=== PATIENT | male | born 1950 | race Caucasian/White ===

== ENCOUNTER 2022-03-01 18:03 | Inpatient (IN) | payer MEDICARE, MEDICAID ==
[~2022-03-01] VITALS: Ht 167.6 cm; Wt 80.4 kg
[2022-03-01 20:17] LABS: EOSINOPHILS % (AUTO) 2.9 % (1.0-6.0); HEMATOCRIT 35.5 % (41-53); HEMOGLOBIN 11.7 g/dL (13.5-17.5); LYMPHOCYTES # (AUTO) 1.6 K/uL (1.0-4.8); LYMPHOCYTES % (AUTO) 21.5 % (22.0-44.0); MEAN CORPUSCULAR HEMOGLOBIN 28.6 pg (26.0-34.0); MEAN CORPUSCULAR HGB CONC 32.9 G/dL (31.0-37.0); MEAN CORPUSCULAR VOLUME 87 fL (80-100); MONOCYTES # (AUTO) 0.4 K/uL (0.1-1.0); MONOCYTES % (AUTO) 5.7 % (2.0-9.0); NEUTROPHILS # (AUTO) 5.2 K/uL (1.8-7.7); NEUTROPHILS % (AUTO) 68.9 % (40.0-70.0); PLATELET COUNT (AUTO) 182 K/uL (150-450); RED BLOOD CELL COUNT(AUTO) 4.09 MIL/uL (4.50-5.90); RED CELL DISTRIBUTION WIDTH 14.4 % (11.5-14.5)
[2022-03-01 20:28] LABS: ANION GAP 10 mmol/L (8-16); CALCIUM, TOTAL 9.6 mg/dL (8.8-10.5); CARBON DIOXIDE 27 mmol/L (22-29); CHLORIDE 96 mmol/L (98-107); CREATININE 1.17 mg/dL (0.60-1.30); GLUCOSE,RANDOM 89 mg/dL (70-110); SODIUM SERUM 133 mmol/L (136-145); UREA NITROGEN, BLOOD 34 mg/dL (7-18)
[2022-03-01 20:34] LABS: ALANINE AMINOTRANSFERASE 17 U/L (12-78); ALBUMIN 3.4 g/dL (3.4-5.0); ALKALINE PHOSPHATASE 106 U/L (46-116); ASPARTATE AMINOTRANSFERASE 22 U/L (15-37); BILIRUBIN,TOTAL 0.5 mg/dL (0.1-1.0); TOTAL PROTEIN, SERUM 7.8 g/dL (6.4-8.2)
[2022-03-01 20:37] LABS: GLOMERULAR FILTR. RATE CALC > 60 mL/min (>60)
[2022-03-01] MEDS ORDERED: ACETAMINOPHEN 325 MG TABLET PO PRN (22:00)
[2022-03-01] MEDS ORDERED: ONDANSETRON HCL 4 MG/2 ML VIAL IVP PRN (22:00)
[2022-03-01] MEDS ORDERED: IOHEXOL 350 MG/ML 100 ML VIAL ONE (22:08)
[2022-03-01] MEDS ORDERED: SODIUM CHLORIDE 0.9% 100 ML ONE (22:08)
[2022-03-01 22:23] LABS: COVID AG,FIA SOURCE NASAL SWAB
[2022-03-01 22:42] LABS: CHOLESTEROL 180 mg/dL (131-200); HDL CHOLESTEROL 91 mg/dL (40-60); LDL CHOL (CALC.) 81 mg/dL (0-130); THYROID STIMULATING HORMONE 8.48 uIU/mL (0.36-3.74); TRIGLYCERIDES 42 mg/dL (15-150)
[2022-03-02 00:12] VITALS: BP 170/97
[2022-03-02] MEDS: HEPARIN SODIUM,PORCINE 5,000 UNITS/ML VIAL SQ SCH ×3 (00:33→15:54)
[2022-03-02] MEDS: MELATONIN 5 MG TABLET PO PRN (00:33)
[2022-03-02] MEDS ORDERED: ASPIRIN 81 MG CHEWABLE TABLET PO ONE (00:45)
[2022-03-02 03:23] VITALS: BP 129/70
[2022-03-02 04:39] LABS: BASOPHILS % (AUTO) 1.5 % (0.0-2.0); EOSINOPHILS % (AUTO) 4.5 % (1.0-6.0); HEMATOCRIT 32.9 % (41-53); HEMOGLOBIN 11.2 g/dL (13.5-17.5); LYMPHOCYTES # (AUTO) 1.9 K/uL (1.0-4.8); LYMPHOCYTES % (AUTO) 32.7 % (22.0-44.0); MEAN CORPUSCULAR HEMOGLOBIN 29.4 pg (26.0-34.0); MEAN CORPUSCULAR HGB CONC 34.2 G/dL (31.0-37.0); MEAN CORPUSCULAR VOLUME 86 fL (80-100); MONOCYTES # (AUTO) 0.4 K/uL (0.1-1.0); MONOCYTES % (AUTO) 6.5 % (2.0-9.0); NEUTROPHILS # (AUTO) 3.2 K/uL (1.8-7.7); NEUTROPHILS % (AUTO) 54.8 % (40.0-70.0); PLATELET COUNT (AUTO) 172 K/uL (150-450); RED BLOOD CELL COUNT(AUTO) 3.82 MIL/uL (4.50-5.90); RED CELL DISTRIBUTION WIDTH 14.3 % (11.5-14.5)
[2022-03-02 04:49] LABS: ANION GAP 8 mmol/L (8-16); CALCIUM, TOTAL 9.2 mg/dL (8.8-10.5); CARBON DIOXIDE 28 mmol/L (22-29); CHLORIDE 99 mmol/L (98-107); CREATININE 1.06 mg/dL (0.60-1.30); GLOMERULAR FILTR. RATE CALC > 60 mL/min (>60); GLUCOSE,RANDOM 79 mg/dL (70-110); POTASSIUM 3.5 mmol/L (3.5-5.1); SODIUM SERUM 135 mmol/L (136-145); UREA NITROGEN, BLOOD 28 mg/dL (7-18)
[2022-03-02 08:02] VITALS: BP 123/70
[2022-03-02] MEDS: ASPIRIN 81 MG CHEWABLE TABLET PO SCH (08:54)
[2022-03-02] MEDS: ATORVASTATIN CALCIUM 20 MG TABLET PO SCH (08:54)
[2022-03-02 10:59] VITALS: BP 133/80
[2022-03-02 15:41] VITALS: BP 171/106
[2022-03-02] MEDS ORDERED: CloNIDine HCL 0.1 MG TABLET PO PRN (17:30)
[2022-03-02] MEDS: AmLODIPine BESYLATE 5 MG TABLET PO SCH (17:35)
[2022-03-03 00:12] VITALS: BP 137/75
[2022-03-03] MEDS: HEPARIN SODIUM,PORCINE 5,000 UNITS/ML VIAL SQ SCH ×3 (01:33→16:00)
[2022-03-03 07:30] VITALS: BP 121/62
[2022-03-03] MEDS: ASPIRIN 81 MG CHEWABLE TABLET PO SCH ×2 (08:00→11:57)
[2022-03-03] MEDS: ATORVASTATIN CALCIUM 20 MG TABLET PO SCH (09:00)
[2022-03-03] MEDS: AmLODIPine BESYLATE 5 MG TABLET PO SCH (09:00)
[2022-03-03 16:03] VITALS: BP 129/69
[2022-03-04 00:35] VITALS: BP 147/88
[2022-03-04 07:57] VITALS: BP 138/91
[2022-03-04] MEDS: HEPARIN SODIUM,PORCINE 5,000 UNITS/ML VIAL SQ SCH ×4 (08:00→23:37)
[2022-03-04] MEDS: ATORVASTATIN CALCIUM 20 MG TABLET PO SCH (08:37)
[2022-03-04] MEDS: AmLODIPine BESYLATE 5 MG TABLET PO SCH (08:37)
[2022-03-04 11:34] VITALS: BP 118/78
[2022-03-04 15:37] VITALS: BP 107/66
[2022-03-04 19:16] VITALS: BP 141/75
[2022-03-04 23:37] VITALS: BP 160/84
[2022-03-05 05:10] VITALS: BP 151/89
[2022-03-05 07:33] VITALS: BP 166/101
[2022-03-05] MEDS: ASPIRIN 81 MG CHEWABLE TABLET PO SCH (08:00)
[2022-03-05] MEDS: HEPARIN SODIUM,PORCINE 5,000 UNITS/ML VIAL SQ SCH ×3 (08:00→23:24)
[2022-03-05] MEDS: ATORVASTATIN CALCIUM 20 MG TABLET PO SCH (09:00)
[2022-03-05] MEDS: AmLODIPine BESYLATE 5 MG TABLET PO SCH (09:00)
[2022-03-05 10:30] VITALS: BP 158/81
[2022-03-05 12:29] VITALS: BP 151/80
[2022-03-05 15:56] VITALS: BP 143/85
[2022-03-05 20:29] VITALS: BP 143/84
[2022-03-06 04:48] VITALS: BP 147/77
[2022-03-06] MEDS: HEPARIN SODIUM,PORCINE 5,000 UNITS/ML VIAL SQ SCH ×3 (07:41→23:26)
[2022-03-06] MEDS: ASPIRIN 81 MG CHEWABLE TABLET PO SCH (07:47)
[2022-03-06] MEDS: ATORVASTATIN CALCIUM 20 MG TABLET PO SCH (07:47)
[2022-03-06] MEDS: AmLODIPine BESYLATE 5 MG TABLET PO SCH (07:47)
[2022-03-06 08:06] VITALS: BP 146/87
[2022-03-06 16:02] VITALS: BP 151/93
[2022-03-06 17:16] VITALS: BP 142/71
[2022-03-06 20:32] VITALS: BP 139/81
[2022-03-07 05:15] VITALS: BP 145/68
[2022-03-07 08:05] VITALS: BP 140/70
[2022-03-07] MEDS: HEPARIN SODIUM,PORCINE 5,000 UNITS/ML VIAL SQ SCH ×3 (08:51→23:29)
[2022-03-07] MEDS: ASPIRIN 81 MG CHEWABLE TABLET PO SCH (08:52)
[2022-03-07] MEDS: ATORVASTATIN CALCIUM 20 MG TABLET PO SCH (08:53)
[2022-03-07] MEDS: AmLODIPine BESYLATE 5 MG TABLET PO SCH (08:53)
[2022-03-07 15:55] VITALS: BP 135/81
[2022-03-07 19:33] VITALS: BP 132/78
[2022-03-08 05:45] VITALS: BP 126/92
[2022-03-08] MEDS: HEPARIN SODIUM,PORCINE 5,000 UNITS/ML VIAL SQ SCH ×3 (08:00→23:24)
[2022-03-08] MEDS: ASPIRIN 81 MG CHEWABLE TABLET PO SCH (08:00)
[2022-03-08 08:14] VITALS: BP 138/85
[2022-03-08] MEDS: ATORVASTATIN CALCIUM 20 MG TABLET PO SCH (08:14)
[2022-03-08] MEDS: AmLODIPine BESYLATE 5 MG TABLET PO SCH (08:14)
[2022-03-08 15:59] VITALS: BP 154/88
[2022-03-08 20:09] VITALS: BP 155/87
[2022-03-09 06:00] VITALS: BP 144/95
[2022-03-09] MEDS: ASPIRIN 81 MG CHEWABLE TABLET PO SCH (08:00)
[2022-03-09] MEDS: HEPARIN SODIUM,PORCINE 5,000 UNITS/ML VIAL SQ SCH ×3 (08:00→23:13)
[2022-03-09] MEDS: AmLODIPine BESYLATE 5 MG TABLET PO SCH (08:18)
[2022-03-09] MEDS: ATORVASTATIN CALCIUM 20 MG TABLET PO SCH (08:19)
[2022-03-09 08:31] VITALS: BP 159/95
[2022-03-09 15:03] VITALS: BP 145/91
[2022-03-09 21:50] VITALS: BP 158/80
[2022-03-10 04:10] VITALS: BP 124/94
[2022-03-10] MEDS: ASPIRIN 81 MG CHEWABLE TABLET PO SCH (08:00)
[2022-03-10] MEDS: HEPARIN SODIUM,PORCINE 5,000 UNITS/ML VIAL SQ SCH ×3 (08:00→23:03)
[2022-03-10 08:38] VITALS: BP 140/81
[2022-03-10] MEDS: AmLODIPine BESYLATE 5 MG TABLET PO SCH (08:45)
[2022-03-10] MEDS: ATORVASTATIN CALCIUM 20 MG TABLET PO SCH (08:45)
[2022-03-10 16:06] VITALS: BP 146/81
[2022-03-10 20:30] VITALS: BP 154/77
[2022-03-11 04:39] VITALS: BP 146/84
[2022-03-11 07:35] VITALS: BP 152/81
[2022-03-11] MEDS: ASPIRIN 81 MG CHEWABLE TABLET PO SCH (08:00)
[2022-03-11] MEDS: HEPARIN SODIUM,PORCINE 5,000 UNITS/ML VIAL SQ SCH ×3 (08:00→23:17)
[2022-03-11] MEDS: ATORVASTATIN CALCIUM 20 MG TABLET PO SCH (08:13)
[2022-03-11] MEDS: AmLODIPine BESYLATE 5 MG TABLET PO SCH (08:14)
[2022-03-11 15:37] VITALS: BP 142/90
[2022-03-11 19:50] VITALS: BP 125/80
[2022-03-12 03:53] VITALS: BP 137/86
[2022-03-12 08:00] VITALS: BP 165/102
[2022-03-12] MEDS: ASPIRIN 81 MG CHEWABLE TABLET PO SCH (08:00)
[2022-03-12] MEDS: HEPARIN SODIUM,PORCINE 5,000 UNITS/ML VIAL SQ SCH ×3 (08:00→23:15)
[2022-03-12] MEDS: ATORVASTATIN CALCIUM 20 MG TABLET PO SCH (08:37)
[2022-03-12] MEDS: AmLODIPine BESYLATE 5 MG TABLET PO SCH (08:37)
[2022-03-12 16:46] VITALS: BP 157/86
[2022-03-12 19:40] VITALS: BP 112/62
[2022-03-13] MEDS: ASPIRIN 81 MG CHEWABLE TABLET PO SCH ×2 (08:00→08:39)
[2022-03-13] MEDS: HEPARIN SODIUM,PORCINE 5,000 UNITS/ML VIAL SQ SCH ×3 (08:00→16:00)
[2022-03-13] MEDS: ATORVASTATIN CALCIUM 20 MG TABLET PO SCH ×2 (08:39→08:50)
[2022-03-13] MEDS: AmLODIPine BESYLATE 5 MG TABLET PO SCH ×2 (08:39→08:50)
[2022-03-13 16:00] VITALS: BP 144/74
[2022-03-13 20:11] VITALS: BP 148/70
[2022-03-14 04:41] VITALS: BP 154/77
[2022-03-14 07:43] VITALS: BP 147/87
[2022-03-14] MEDS: ATORVASTATIN CALCIUM 20 MG TABLET PO SCH (08:30)
[2022-03-14] MEDS: AmLODIPine BESYLATE 5 MG TABLET PO SCH (08:30)
[2022-03-14] MEDS: ASPIRIN 81 MG CHEWABLE TABLET PO SCH (08:30)
[2022-03-14] MEDS: HEPARIN SODIUM,PORCINE 5,000 UNITS/ML VIAL SQ SCH ×4 (08:31→23:21)
[2022-03-14 10:21] LABS: BASOPHILS % (AUTO) 0.8 % (0.0-2.0); EOSINOPHILS % (AUTO) 1.8 % (1.0-6.0); HEMATOCRIT 34.5 % (41-53); HEMOGLOBIN 11.4 g/dL (13.5-17.5); LYMPHOCYTES # (AUTO) 0.7 K/uL (1.0-4.8); LYMPHOCYTES % (AUTO) 10.4 % (22.0-44.0); MEAN CORPUSCULAR HEMOGLOBIN 28.6 pg (26.0-34.0); MEAN CORPUSCULAR VOLUME 87 fL (80-100); MONOCYTES # (AUTO) 0.3 K/uL (0.1-1.0); MONOCYTES % (AUTO) 4.4 % (2.0-9.0); NEUTROPHILS # (AUTO) 5.2 K/uL (1.8-7.7); NEUTROPHILS % (AUTO) 82.6 % (40.0-70.0); PLATELET COUNT (AUTO) 190 K/uL (150-450); RED BLOOD CELL COUNT(AUTO) 3.98 MIL/uL (4.50-5.90); RED CELL DISTRIBUTION WIDTH 14.9 % (11.5-14.5)
[2022-03-14 10:28] LABS: ANION GAP 5 mmol/L (8-16); CALCIUM, TOTAL 8.9 mg/dL (8.8-10.5); CARBON DIOXIDE 30 mmol/L (22-29); CHLORIDE 94 mmol/L (98-107); CREATININE 0.96 mg/dL (0.60-1.30); GLUCOSE,RANDOM 99 mg/dL (70-110); POTASSIUM 3.8 mmol/L (3.5-5.1); SODIUM SERUM 129 mmol/L (136-145); UREA NITROGEN, BLOOD 24 mg/dL (7-18)
[2022-03-14 10:29] LABS: GLOMERULAR FILTR. RATE CALC > 60 mL/min (>60)
[2022-03-14 15:44] VITALS: BP 97/51
[2022-03-14 19:50] VITALS: BP 126/73
[2022-03-15 04:30] VITALS: BP 165/95
[2022-03-15] MEDS: ASPIRIN 81 MG CHEWABLE TABLET PO SCH ×2 (07:46→09:18)
[2022-03-15] MEDS: AmLODIPine BESYLATE 5 MG TABLET PO SCH ×2 (07:46→09:18)
[2022-03-15] MEDS: ATORVASTATIN CALCIUM 20 MG TABLET PO SCH ×2 (07:46→09:18)
[2022-03-15] MEDS: HEPARIN SODIUM,PORCINE 5,000 UNITS/ML VIAL SQ SCH ×3 (08:00→23:32)
[2022-03-15 08:10] VITALS: BP 124/76
[2022-03-16 03:48] VITALS: BP 143/86
[2022-03-16] MEDS: ASPIRIN 81 MG CHEWABLE TABLET PO SCH ×2 (08:00→13:33)
[2022-03-16] MEDS: HEPARIN SODIUM,PORCINE 5,000 UNITS/ML VIAL SQ SCH ×2 (08:00→15:00)
[2022-03-16 08:14] VITALS: BP 132/74
[2022-03-16] MEDS: AmLODIPine BESYLATE 5 MG TABLET PO SCH ×2 (09:00→13:31)
[2022-03-16] MEDS: ATORVASTATIN CALCIUM 20 MG TABLET PO SCH ×2 (09:00→13:31)
[2022-03-16 19:45] VITALS: BP 129/69
[2022-03-17] MEDS: HEPARIN SODIUM,PORCINE 5,000 UNITS/ML VIAL SQ SCH ×3 (00:04→15:19)
[2022-03-17 04:13] VITALS: BP 137/82
[2022-03-17] MEDS: ASPIRIN 81 MG CHEWABLE TABLET PO SCH (08:00)
[2022-03-17 08:06] VITALS: BP 149/92
[2022-03-17] MEDS: AmLODIPine BESYLATE 5 MG TABLET PO SCH (09:00)
[2022-03-17] MEDS: ATORVASTATIN CALCIUM 20 MG TABLET PO SCH (09:00)
[2022-03-17 15:31] LABS: ANION GAP 6 mmol/L (8-16); CALCIUM, TOTAL 8.5 mg/dL (8.8-10.5); CARBON DIOXIDE 30 mmol/L (22-29); CHLORIDE 96 mmol/L (98-107); CREATININE 0.94 mg/dL (0.60-1.30); GLUCOSE,RANDOM 101 mg/dL (70-110); POTASSIUM 3.8 mmol/L (3.5-5.1); SODIUM SERUM 132 mmol/L (136-145); UREA NITROGEN, BLOOD 28 mg/dL (7-18)
[2022-03-17 15:33] LABS: GLOMERULAR FILTR. RATE CALC > 60 mL/min (>60)
[2022-03-17 16:02] VITALS: BP 129/71
[2022-03-17 20:05] VITALS: BP 144/83
[2022-03-18 04:33] VITALS: BP 146/75
[2022-03-18] MEDS: ATORVASTATIN CALCIUM 20 MG TABLET PO SCH (09:00)
[2022-03-18] MEDS: AmLODIPine BESYLATE 5 MG TABLET PO SCH (09:00)
[2022-03-18] MEDS: HEPARIN SODIUM,PORCINE 5,000 UNITS/ML VIAL SQ SCH ×4 (10:19→23:49)
[2022-03-18] MEDS: ASPIRIN 81 MG CHEWABLE TABLET PO SCH (10:19)
[2022-03-18 16:22] VITALS: BP 124/76
[2022-03-18 20:00] VITALS: BP 150/96
[2022-03-19 05:05] VITALS: BP 135/84
[2022-03-19] MEDS: HEPARIN SODIUM,PORCINE 5,000 UNITS/ML VIAL SQ SCH ×3 (08:00→23:36)
[2022-03-19] MEDS: ASPIRIN 81 MG CHEWABLE TABLET PO SCH (08:00)
[2022-03-19] MEDS: ATORVASTATIN CALCIUM 20 MG TABLET PO SCH (08:29)
[2022-03-19] MEDS: AmLODIPine BESYLATE 5 MG TABLET PO SCH (08:29)
[2022-03-19 08:38] VITALS: BP 144/79
[2022-03-19 16:00] VITALS: BP 146/76
[2022-03-19 20:51] VITALS: BP 136/82
[2022-03-20 04:41] VITALS: BP 141/76
[2022-03-20] MEDS: HEPARIN SODIUM,PORCINE 5,000 UNITS/ML VIAL SQ SCH ×3 (08:00→23:13)
[2022-03-20 08:27] VITALS: BP 128/90
[2022-03-20] MEDS: ASPIRIN 81 MG CHEWABLE TABLET PO SCH (08:36)
[2022-03-20] MEDS: ATORVASTATIN CALCIUM 20 MG TABLET PO SCH (08:36)
[2022-03-20] MEDS: AmLODIPine BESYLATE 5 MG TABLET PO SCH (08:36)
[2022-03-20 15:58] VITALS: BP 140/74
[2022-03-20 20:04] VITALS: BP 149/73
[2022-03-21 04:51] VITALS: BP 148/80
[2022-03-21 07:54] VITALS: BP 116/53
[2022-03-21] MEDS: ATORVASTATIN CALCIUM 20 MG TABLET PO SCH (08:10)
[2022-03-21] MEDS: HEPARIN SODIUM,PORCINE 5,000 UNITS/ML VIAL SQ SCH ×3 (08:10→23:40)
[2022-03-21] MEDS: AmLODIPine BESYLATE 5 MG TABLET PO SCH (08:10)
[2022-03-21] MEDS: ASPIRIN 81 MG CHEWABLE TABLET PO SCH (08:10)
[2022-03-21 15:34] VITALS: BP 130/85
[2022-03-21 19:52] VITALS: BP 137/69
[2022-03-22 05:10] VITALS: BP 137/82
[2022-03-22] MEDS: HEPARIN SODIUM,PORCINE 5,000 UNITS/ML VIAL SQ SCH ×3 (08:00→23:57)
[2022-03-22] MEDS: ASPIRIN 81 MG CHEWABLE TABLET PO SCH (08:00)
[2022-03-22 08:24] VITALS: BP 137/74
[2022-03-22] MEDS: AmLODIPine BESYLATE 5 MG TABLET PO SCH (08:27)
[2022-03-22] MEDS: ATORVASTATIN CALCIUM 20 MG TABLET PO SCH (08:27)
[2022-03-22 11:51] LABS: BASOPHILS % (AUTO) 0.8 % (0.0-2.0); EOSINOPHILS % (AUTO) 2.8 % (1.0-6.0); HEMATOCRIT 37.4 % (41-53); HEMOGLOBIN 12.4 g/dL (13.5-17.5); LYMPHOCYTES # (AUTO) 1.4 K/uL (1.0-4.8); LYMPHOCYTES % (AUTO) 25.4 % (22.0-44.0); MEAN CORPUSCULAR HGB CONC 33.2 G/dL (31.0-37.0); MEAN CORPUSCULAR VOLUME 87 fL (80-100); MONOCYTES # (AUTO) 0.4 K/uL (0.1-1.0); MONOCYTES % (AUTO) 7.3 % (2.0-9.0); NEUTROPHILS # (AUTO) 3.4 K/uL (1.8-7.7); NEUTROPHILS % (AUTO) 63.7 % (40.0-70.0); PLATELET COUNT (AUTO) 193 K/uL (150-450); RED BLOOD CELL COUNT(AUTO) 4.28 MIL/uL (4.50-5.90)
[2022-03-22 12:04] LABS: ANION GAP 4 mmol/L (8-16); CALCIUM, TOTAL 9.1 mg/dL (8.8-10.5); CARBON DIOXIDE 31 mmol/L (22-29); CHLORIDE 96 mmol/L (98-107); CREATININE 0.84 mg/dL (0.60-1.30); GLUCOSE,RANDOM 67 mg/dL (70-110); POTASSIUM 3.9 mmol/L (3.5-5.1); SODIUM SERUM 131 mmol/L (136-145); UREA NITROGEN, BLOOD 28 mg/dL (7-18)
[2022-03-22 12:05] LABS: GLOMERULAR FILTR. RATE CALC > 60 mL/min (>60)
[2022-03-22 15:35] VITALS: BP 121/59
[2022-03-22 19:55] VITALS: BP 127/68
[2022-03-23 04:35] VITALS: BP 130/73
[2022-03-23] MEDS: ASPIRIN 81 MG CHEWABLE TABLET PO SCH (08:00)
[2022-03-23] MEDS: HEPARIN SODIUM,PORCINE 5,000 UNITS/ML VIAL SQ SCH ×3 (08:00→19:48)
[2022-03-23] MEDS: AmLODIPine BESYLATE 5 MG TABLET PO SCH (08:35)
[2022-03-23] MEDS: ATORVASTATIN CALCIUM 20 MG TABLET PO SCH (08:35)
[2022-03-23 09:01] VITALS: BP 131/82
[2022-03-23 17:10] VITALS: BP 158/85
[2022-03-23 19:42] VITALS: BP 150/76
[2022-03-24 05:32] VITALS: BP 145/81
[2022-03-24] MEDS: HEPARIN SODIUM,PORCINE 5,000 UNITS/ML VIAL SQ SCH ×2 (08:00→15:21)
[2022-03-24] MEDS: ASPIRIN 81 MG CHEWABLE TABLET PO SCH (08:00)
[2022-03-24] MEDS: ATORVASTATIN CALCIUM 20 MG TABLET PO SCH (08:04)
[2022-03-24] MEDS: AmLODIPine BESYLATE 5 MG TABLET PO SCH (08:04)
[2022-03-24 08:10] VITALS: BP 150/92
[2022-03-24 16:07] VITALS: BP 147/78
[2022-03-24 19:50] VITALS: BP 115/83
[2022-03-25 04:17] VITALS: BP 171/91
[2022-03-25] MEDS: HEPARIN SODIUM,PORCINE 5,000 UNITS/ML VIAL SQ SCH ×5 (08:00→23:47)
[2022-03-25] MEDS: ASPIRIN 81 MG CHEWABLE TABLET PO SCH (08:00)
[2022-03-25 08:19] VITALS: BP 151/91
[2022-03-25] MEDS: ATORVASTATIN CALCIUM 20 MG TABLET PO SCH ×2 (08:55→09:13)
[2022-03-25] MEDS: AmLODIPine BESYLATE 5 MG TABLET PO SCH ×2 (08:55→09:13)
[2022-03-25 16:52] VITALS: BP 144/80
[2022-03-25 19:47] VITALS: BP 118/82
[2022-03-26 03:23] VITALS: BP 141/72
[2022-03-26 08:22] VITALS: BP 138/72
[2022-03-26] MEDS: AmLODIPine BESYLATE 5 MG TABLET PO SCH (08:55)
[2022-03-26] MEDS: ATORVASTATIN CALCIUM 20 MG TABLET PO SCH (08:55)
[2022-03-26] MEDS: ASPIRIN 81 MG CHEWABLE TABLET PO SCH (08:55)
[2022-03-26] MEDS: HEPARIN SODIUM,PORCINE 5,000 UNITS/ML VIAL SQ SCH ×3 (08:56→23:46)
[2022-03-26 15:59] VITALS: BP 137/79
[2022-03-26 21:01] VITALS: BP 123/71
[2022-03-27 04:15] VITALS: BP 139/97
[2022-03-27] MEDS: ASPIRIN 81 MG CHEWABLE TABLET PO SCH (08:00)
[2022-03-27] MEDS: HEPARIN SODIUM,PORCINE 5,000 UNITS/ML VIAL SQ SCH ×2 (08:00→16:00)
[2022-03-27] MEDS: ATORVASTATIN CALCIUM 20 MG TABLET PO SCH (08:16)
[2022-03-27] MEDS: AmLODIPine BESYLATE 10 MG TABLET PO SCH (08:16)
[2022-03-27 08:55] VITALS: BP 152/69
[2022-03-27 16:42] VITALS: BP 137/84
[2022-03-27 20:51] VITALS: BP 132/79
[2022-03-28 05:05] VITALS: BP 140/76
[2022-03-28 06:56] LABS: BASOPHILS % (AUTO) 1.3 % (0.0-2.0); HEMATOCRIT 34.9 % (41-53); HEMOGLOBIN 11.7 g/dL (13.5-17.5); LYMPHOCYTES # (AUTO) 1.7 K/uL (1.0-4.8); LYMPHOCYTES % (AUTO) 32.1 % (22.0-44.0); MEAN CORPUSCULAR HGB CONC 33.7 G/dL (31.0-37.0); MEAN CORPUSCULAR VOLUME 86 fL (80-100); MONOCYTES # (AUTO) 0.5 K/uL (0.1-1.0); MONOCYTES % (AUTO) 9.2 % (2.0-9.0); NEUTROPHILS # (AUTO) 2.8 K/uL (1.8-7.7); NEUTROPHILS % (AUTO) 53.4 % (40.0-70.0); PLATELET COUNT (AUTO) 183 K/uL (150-450); RED BLOOD CELL COUNT(AUTO) 4.05 MIL/uL (4.50-5.90); RED CELL DISTRIBUTION WIDTH 15.2 % (11.5-14.5)
[2022-03-28 07:21] LABS: ALANINE AMINOTRANSFERASE 22 U/L (12-78); ALBUMIN 3.2 g/dL (3.4-5.0); ALKALINE PHOSPHATASE 101 U/L (46-116); ANION GAP 8 mmol/L (8-16); ASPARTATE AMINOTRANSFERASE 15 U/L (15-37); BILIRUBIN,TOTAL 0.8 mg/dL (0.1-1.0); CALCIUM, TOTAL 9.1 mg/dL (8.8-10.5); CARBON DIOXIDE 27 mmol/L (22-29); CHLORIDE 98 mmol/L (98-107); CREATININE 0.87 mg/dL (0.60-1.30); GLOMERULAR FILTR. RATE CALC > 60 mL/min (>60); GLUCOSE,RANDOM 86 mg/dL (70-110); POTASSIUM 3.9 mmol/L (3.5-5.1); SODIUM SERUM 133 mmol/L (136-145); TOTAL PROTEIN, SERUM 7.3 g/dL (6.4-8.2); UREA NITROGEN, BLOOD 29 mg/dL (7-18)
[2022-03-28 07:58] VITALS: BP 152/93
[2022-03-28] MEDS: HEPARIN SODIUM,PORCINE 5,000 UNITS/ML VIAL SQ SCH ×3 (08:00→15:53)
[2022-03-28] MEDS: ASPIRIN 81 MG CHEWABLE TABLET PO SCH (08:45)
[2022-03-28] MEDS: AmLODIPine BESYLATE 10 MG TABLET PO SCH (08:45)
[2022-03-28] MEDS: ATORVASTATIN CALCIUM 20 MG TABLET PO SCH (08:45)
[2022-03-28] MEDS ORDERED: SODIUM CHLORIDE 0.9% 1,000 ML ONE (11:48)
[2022-03-28 15:51] VITALS: BP 132/72
[2022-03-28 20:40] VITALS: BP 112/68
[2022-03-29 03:55] VITALS: BP 144/92
[2022-03-29] MEDS: ASPIRIN 81 MG CHEWABLE TABLET PO SCH (08:00)
[2022-03-29] MEDS: HEPARIN SODIUM,PORCINE 5,000 UNITS/ML VIAL SQ SCH ×3 (08:00→16:00)
[2022-03-29] MEDS: AmLODIPine BESYLATE 10 MG TABLET PO SCH (08:22)
[2022-03-29] MEDS: ATORVASTATIN CALCIUM 20 MG TABLET PO SCH (08:22)
[2022-03-29 09:23] VITALS: BP 133/77
[2022-03-29 16:47] VITALS: BP 99/63
[2022-03-29 20:24] VITALS: BP 139/76
[2022-03-30 03:52] VITALS: BP 145/84
[2022-03-30] MEDS: HEPARIN SODIUM,PORCINE 5,000 UNITS/ML VIAL SQ SCH ×3 (08:00→16:00)
[2022-03-30] MEDS: ASPIRIN 81 MG CHEWABLE TABLET PO SCH (08:07)
[2022-03-30] MEDS: AmLODIPine BESYLATE 10 MG TABLET PO SCH (08:10)
[2022-03-30] MEDS: ATORVASTATIN CALCIUM 20 MG TABLET PO SCH (08:10)
[2022-03-30 08:28] VITALS: BP 140/76
[2022-03-30 15:30] VITALS: BP 124/70
[2022-03-30 20:05] VITALS: BP 127/84
[2022-03-31 04:25] VITALS: BP 181/97
[2022-03-31 05:00] VITALS: BP 145/76
[2022-03-31 07:36] VITALS: BP 124/80
[2022-03-31] MEDS: ASPIRIN 81 MG CHEWABLE TABLET PO SCH (08:00)
[2022-03-31] MEDS: HEPARIN SODIUM,PORCINE 5,000 UNITS/ML VIAL SQ SCH ×3 (08:00→15:40)
[2022-03-31] MEDS: ATORVASTATIN CALCIUM 20 MG TABLET PO SCH (08:19)
[2022-03-31] MEDS: AmLODIPine BESYLATE 10 MG TABLET PO SCH (08:19)
[2022-03-31 15:24] VITALS: BP 148/88
[2022-03-31 20:29] VITALS: BP 148/92
[2022-04-01 04:47] VITALS: BP 152/96
[2022-04-01] MEDS: HEPARIN SODIUM,PORCINE 5,000 UNITS/ML VIAL SQ SCH ×4 (08:00→23:26)
[2022-04-01] MEDS: ASPIRIN 81 MG CHEWABLE TABLET PO SCH (08:00)
[2022-04-01 08:18] VITALS: BP 151/84
[2022-04-01] MEDS: AmLODIPine BESYLATE 10 MG TABLET PO SCH (08:41)
[2022-04-01] MEDS: ATORVASTATIN CALCIUM 20 MG TABLET PO SCH (08:41)
[2022-04-01 20:17] VITALS: BP 136/77
[2022-04-02 05:00] VITALS: BP 142/82
[2022-04-02] MEDS: ASPIRIN 81 MG CHEWABLE TABLET PO SCH (08:00)
[2022-04-02] MEDS: HEPARIN SODIUM,PORCINE 5,000 UNITS/ML VIAL SQ SCH ×3 (08:00→23:59)
[2022-04-02] MEDS: AmLODIPine BESYLATE 10 MG TABLET PO SCH (09:00)
[2022-04-02] MEDS: ATORVASTATIN CALCIUM 20 MG TABLET PO SCH (09:00)
[2022-04-02 09:20] VITALS: BP 155/98
[2022-04-02 15:40] VITALS: BP 157/76
[2022-04-02 20:13] VITALS: BP 127/73
[2022-04-03 04:53] VITALS: BP 123/71
[2022-04-03] MEDS: HEPARIN SODIUM,PORCINE 5,000 UNITS/ML VIAL SQ SCH ×3 (08:00→23:52)
[2022-04-03] MEDS: ASPIRIN 81 MG CHEWABLE TABLET PO SCH (08:00)
[2022-04-03] MEDS: ATORVASTATIN CALCIUM 20 MG TABLET PO SCH (09:00)
[2022-04-03] MEDS: AmLODIPine BESYLATE 10 MG TABLET PO SCH (09:00)
[2022-04-03 16:54] VITALS: BP 145/93
[2022-04-03 21:01] VITALS: BP 132/81
[2022-04-04 04:39] VITALS: BP 140/84
[2022-04-04] MEDS: ASPIRIN 81 MG CHEWABLE TABLET PO SCH (08:00)
[2022-04-04] MEDS: HEPARIN SODIUM,PORCINE 5,000 UNITS/ML VIAL SQ SCH ×3 (08:00→23:52)
[2022-04-04] MEDS: ATORVASTATIN CALCIUM 20 MG TABLET PO SCH (09:00)
[2022-04-04] MEDS: AmLODIPine BESYLATE 10 MG TABLET PO SCH (09:00)
[2022-04-04 09:08] VITALS: BP 135/82
[2022-04-04 09:09] VITALS: BP 153/93
[2022-04-04 20:16] VITALS: BP 140/79
[2022-04-05 04:34] VITALS: BP 158/95
[2022-04-05 07:19] VITALS: BP 148/82
[2022-04-05] MEDS: HEPARIN SODIUM,PORCINE 5,000 UNITS/ML VIAL SQ SCH ×2 (08:00→16:00)
[2022-04-05] MEDS: ASPIRIN 81 MG CHEWABLE TABLET PO SCH (08:00)
[2022-04-05] MEDS: AmLODIPine BESYLATE 10 MG TABLET PO SCH (09:00)
[2022-04-05] MEDS: ATORVASTATIN CALCIUM 20 MG TABLET PO SCH (09:00)
[2022-04-05 15:10] VITALS: BP 154/80
[2022-04-05 19:42] VITALS: BP 158/90
[2022-04-06] MEDS: HEPARIN SODIUM,PORCINE 5,000 UNITS/ML VIAL SQ SCH ×5 (00:22→23:37)
[2022-04-06] MEDS: MELATONIN 5 MG TABLET PO PRN (00:23)
[2022-04-06 06:30] VITALS: BP 149/98
[2022-04-06 08:00] VITALS: BP 159/98
[2022-04-06] MEDS: ASPIRIN 81 MG CHEWABLE TABLET PO SCH (08:00)
[2022-04-06] MEDS: AmLODIPine BESYLATE 10 MG TABLET PO SCH (09:00)
[2022-04-06] MEDS: ATORVASTATIN CALCIUM 20 MG TABLET PO SCH (09:00)
[2022-04-06 15:42] VITALS: BP 154/94
[2022-04-06 22:44] VITALS: BP 122/81
[2022-04-07 06:42] VITALS: BP 150/76
[2022-04-07] MEDS: HEPARIN SODIUM,PORCINE 5,000 UNITS/ML VIAL SQ SCH ×3 (08:00→23:41)
[2022-04-07] MEDS: ASPIRIN 81 MG CHEWABLE TABLET PO SCH (08:00)
[2022-04-07 08:37] VITALS: BP 132/68
[2022-04-07] MEDS: ATORVASTATIN CALCIUM 20 MG TABLET PO SCH (09:00)
[2022-04-07] MEDS: AmLODIPine BESYLATE 10 MG TABLET PO SCH (09:00)
[2022-04-07 16:00] VITALS: BP 143/78
[2022-04-07 19:55] VITALS: BP 144/79
[2022-04-08 04:35] VITALS: BP_SYST 138; BP_SYST 156; BP_DIAS 77; BP_DIAS 95
[2022-04-08] MEDS: ASPIRIN 81 MG CHEWABLE TABLET PO SCH (08:00)
[2022-04-08] MEDS: HEPARIN SODIUM,PORCINE 5,000 UNITS/ML VIAL SQ SCH ×2 (08:00→15:44)
[2022-04-08] MEDS: ATORVASTATIN CALCIUM 20 MG TABLET PO SCH (09:00)
[2022-04-08] MEDS: AmLODIPine BESYLATE 10 MG TABLET PO SCH (09:00)
[2022-04-08 15:48] VITALS: BP 164/97
[2022-04-08 20:01] VITALS: BP 133/86
[2022-04-09 04:38] VITALS: BP 144/88
[2022-04-09 07:58] VITALS: BP 140/84
[2022-04-09] MEDS: ASPIRIN 81 MG CHEWABLE TABLET PO SCH (08:00)
[2022-04-09] MEDS: HEPARIN SODIUM,PORCINE 5,000 UNITS/ML VIAL SQ SCH ×3 (08:00→15:28)
[2022-04-09] MEDS: ATORVASTATIN CALCIUM 20 MG TABLET PO SCH (09:00)
[2022-04-09] MEDS: AmLODIPine BESYLATE 10 MG TABLET PO SCH (09:00)
[2022-04-09 15:25] VITALS: BP 138/78
[2022-04-09] MEDS ORDERED: ASPI-1450 PO (17:46)
[2022-04-09] MEDS ORDERED: AMLO-258 PO (17:47)
[2022-04-09] MEDS ORDERED: ATOR20TA86 PO (17:47)
[2022-04-09 19:32] VITALS: BP 131/88
== END 2022-04-09 20:57 | DRG 65 ==
LOC: EMS 18:03 → 5S 23:06 → 6S 03-05 10:20
PROVIDERS: ADMIT Internal Medicine; ATTEND Internal Medicine
DX: I63.9 Cerebral infarction, unspecified (principal); E87.1 Hypo-osmolality and hyponatremia; I10 Essential (primary) hypertension; D64.9 Anemia, unspecified; F03.90 Unspecified dementia, unspecified severity, without behavioral disturbance, psychotic disturbance, mood disturbance, and anxiety; M17.11 Unilateral primary osteoarthritis, right knee; Z53.20 Procedure and treatment not carried out because of patient's decision for unspecified reasons; R29.706 NIHSS score 6; Z20.822 Contact with and (suspected) exposure to COVID-19; Z91.199 Patient's noncompliance with other medical treatment and regimen due to unspecified reason; Z86.73 Personal history of transient ischemic attack (TIA), and cerebral infarction without residual deficits; Z79.899 Other long term (current) drug therapy; Z79.82 Long term (current) use of aspirin
CPT/HCPCS: 70450; 70496; 70498; 70551; 71045; 80048; 80053; 80061; 83036; 83735; 84439; 84443; 84484; 85025; 87081; 92507; 92526; 92610; 93005; 93306; 97110; 97162; 97166; 97530; 97535; 99285; J1644; J7030; J7050; Q9967; 36415-L1; 36415-TC